=== PATIENT | female | born 2000 ===

== ENCOUNTER 2025-05-01 14:44 | Emergency (ER) | payer MEDICAID ==
[~2025-05-01] VITALS: Ht 157.5 cm; Wt 61.0 kg
[2025-05-01 14:48] VITALS: TEMP 36.9; O2SAT 100
[2025-05-01 15:35] LABS: BASOPHILS % 0.5 % (0.0-2.0); EOSINOPHILS % 1.8 % (0.0-5.0); HEMATOCRIT. 38.0 % (36.0-48.0); HEMOGLOBIN. 12.6 g/dL (12.0-16.0); LYMPHOCYTES % 12.3 % (20.0-50.0); MEAN PLATELET VOLUME 8.3 fl (7.4-10.4); MONOCYTES % 6.4 % (2.0-8.0); NEUTROPHILS % 79.0 % (40.0-76.0); PLATELET 257 x1000/uL (130-400); RED BLOOD CELL COUNT 4.20 mill/uL (4.2-5.4); RED CELL DISTRIBUTION WIDTH 13.4 % (11.6-14.6)
[2025-05-01 15:50] LABS: CREATININE 0.9 mg/dL (0.6-1.0); UREA NITROGEN BLOOD 7 mg/dL (9-23)
[2025-05-01 15:56] LABS: B-HCG QUANTITATIVE < 1 mIU/mL (<6)
[2025-05-01 16:40] VITALS: BP 109/66; PULSE 76; RESP 19
[2025-05-01] MEDS: IBUPROFEN 600MG TABLET PO ONE (16:40)
[2025-05-01] MEDS: DICYCLOMINE HCL 10MG CAPSULE PO SCH (18:30)
[2025-05-01] MEDS: MAGNESIUM/ALUMINUM HYDROXIDE/SIMETHICONE 30ML UDC PO STA (18:44)
[2025-05-01] MEDS: DICYCLOMINE 10 MG/5 ML ORAL SYR PO STA (18:44)
[2025-05-01 19:30] LABS: CLARITY URINE CLEAR (CLEAR); COLOR URINE ORANGE (YELLOW); GLUCOSE URINE NEGATIVE (NEGATIVE); KETONES URINE 1+ (NEGATIVE); LEUKOCYTE ESTERASE URINE TRACE (NEGATIVE); NITRITE URINE NEGATIVE (NEGATIVE); OCCULT BLOOD URINE NEGATIVE (NEGATIVE); PH URINE 7.5 (4.5-8.0); PROTEIN URINE NEGATIVE (NEGATIVE); SPECIFIC GRAVITY URINE 1.023 (1.005-1.030); UROBILINOGEN URINE 1.0 E.U./dL (0.2-1.0)
[2025-05-01 20:00] LABS: BACTERIA URINE TRACE; RBC URINE NONE SEEN /hpf (0-2); SQUAMOUS EPITHELIAL CELL URINE 1+ /lpf (RARE/1+)
[2025-05-01] MEDS ORDERED: NITR-87 MT (20:12)
[2025-05-01] MEDS ORDERED: IBUP-2029 MT (20:13)
[2025-05-04 05:11] LABS: CHLAMYDIA TRACHOMATIS NAA Negative (Negative); NEISSERIA GONORRHOEAE NAA Negative (Negative)
== END 2025-05-01 20:22 | disposition home or self-care (01) ==
LOC: ER 14:44
DX: N39.0 Urinary tract infection, site not specified (principal); N83.209 Unspecified ovarian cyst, unspecified side; K52.9 Noninfective gastroenteritis and colitis, unspecified; Z79.899 Other long term (current) drug therapy; Z98.890 Other specified postprocedural states
CPT/HCPCS: 87491; 87591; 80048; 81003; 84702; 85025; 86850; 86900; 86901; 36415; 76830; 76856; 99284; Z7610 ×3; A4606